=== PATIENT | male | born 1960 | race Caucasian/White ===

== ENCOUNTER → 2017-12-04 | Outpatient (CLI) | payer OTHER ==
--- NOTE | 2017-12-04 08:09 | DIAGNOSTIC IMAGING REPORT ---
(BARIUM SWALLOW) ESOPHAGUS CLINICAL HISTORY: Dysphagia. COMPARISON STUDY: None. FLUOROSCOPY TIME: 1.8 minutes. FINDINGS: 23 fluoroscopic images were obtained. Note was made of mild esophageal dysmotility. No esophageal mass was identified. A 13 mm barium tablet passed into the stomach. A small hiatal hernia is noted. There is mild narrowing at the gastroesophageal junction however, a barium tablet passed freely into the stomach. No gastroesophageal reflux was elicited. IMPRESSION: 1. Mild esophageal dysmotility. 2. Small hiatal hernia with distal esophageal ring without evidence for a significant obstruction as a barium tablet passed into the stomach. However, if persistent symptoms, endoscopy might be considered. Electronically signed by: Trip Moore M.D. 12/04/2017 8:07 AM Dictated Date/Time: 12/04/2017 8:04 AM
== END | disposition home or self-care (01) ==
LOC: C.RAD 07:23 → EDSEX 07:45
PROVIDERS: ATTEND Family Medicine
DX: K44.9 Diaphragmatic hernia without obstruction or gangrene (principal); R13.10 Dysphagia, unspecified